=== PATIENT | female | born 2005 ===

== ENCOUNTER 2023-01-09 16:16 | Observation (INO) | payer OTHER, SELFPAY ==
[2023-01-09 18:08] VITALS: BMI 22.4
[2023-01-09] MEDS ORDERED: Ondansetron ODT 4 MG TAB PO PRN (18:19)
[2023-01-09] MEDS ORDERED: Dextrose 50% Abboject 50 ML SYRINGE SLOW IVP PRN (18:19)
[2023-01-09] MEDS ORDERED: Dextrose 5% in Water 1,000 ML IV PRN (18:19)
[2023-01-09] MEDS ORDERED: TETANUS, DIPHTHERIA TOX,ADULT (TDVAX) 0.5 ML VIAL IM ONE (18:19)
[2023-01-09] MEDS ORDERED: Glucagon 1 MG/ML KIT IM PRN (18:19)
[2023-01-09] MEDS ORDERED: Ondansetron PF 4 MG/2 ML Vial IVP PRN (18:19)
[2023-01-09] MEDS ORDERED: Promethazine HCl 25 MG/ML VIAL IM PRN (18:19)
[2023-01-09] MEDS ORDERED: traMADol HCl 50 MG TAB PO PRN (18:19)
[2023-01-09] MEDS ORDERED: Labetalol HCl 100 MG/20 ML VIAL SLOW IVP PRN (18:22)
[2023-01-09] MEDS: Acetaminophen 325 MG TAB PO SCH ×2 (18:32→19:59)
[2023-01-09 20:07] LABS: #Eosinphils 0.1 thou/uL (0.0-0.7); #Monocytes 0.8 thou/uL (0.11-0.59); #Neutrophils 7.1 thou/uL (1.40-6.50); %Basophils 0.4 % (0.0-1.0); %Eosinophils 1.2 % (0.0-10.0); %Lymphocytes 24.5 % (28.0-48.0); %Monocytes 7.5 % (0.0-4.0); %Neutrophils 66.2 % (31.0-61.0); Hematocrit 41.3 % (36.0-47.0); Hemoglobin 13.6 g/dL (12.0-16.0); Mean Corpuscular HGB CONC 32.9 g/dL (32.0-36.0); Mean Corpuscular Hemoglobin 29.6 pg (25.0-35.0); Mean Platelet Volume 11.3 fL (7.4-10.4); Platelet Count 172 10x3/uL (130-400); RBC Distribution Width 12.4 % (11.5-14.5); Red Blood Cell (RBC) Count 4.59 mill/uL (4.00-5.20); White Blood Cell (WBC) Count 10.8 10x3/uL (4.8-10.8)
[2023-01-09 20:30] LABS: PTT 29.3 sec (22.9-36.1); Prothrombin Time 13.8 sec (12.0-14.7)
[2023-01-09 20:34] LABS: Anion Gap 13 mmol/L (10-20); BUN (Urea Nitrogen) 12 mg/dL (8.4-21.0); Calc. Creatinine Clearance 108 mL/min (70-130); Calcium 9.5 mg/dL (7.8-10.44); Carbon Dioxide 25 mmol/L (22-29); Chloride 105 mmol/L (98-107); Estimated GFR 116; Glucose 82 mg/dL (70-105); Magnesium 1.9 mg/dL (1.7-2.2); Phosphorus 3.6 mg/dL (2.3-4.7); Potassium 3.6 mmol/L (3.5-5.1); Sodium 139 mmol/L (136-145)
[2023-01-10] MEDS: Acetaminophen 325 MG TAB PO SCH ×3 (01:30→11:57)
[2023-01-10] MEDS ORDERED: Levothyroxine Sodium 75 MCG TAB PO SCH (06:00)
[2023-01-10 10:50] LABS: Specific Gravity 1.031 (1.002-1.036)
[2023-01-10 11:15] LABS: Pregnancy Test - Urine (BHCG) Negative (Negative); Pregu Control Background? CLEAR/WHITE (CLR/WHITE); Pregu Control Bar Appear? YES (CONTROL BAR)
[2023-01-10 15:36] VITALS: BP 128/63; TEMP 98.2
== END 2023-01-10 16:45 | disposition home or self-care (01) ==
LOC: 2SE 16:16
PROVIDERS: ADMIT Surgery; ATTEND Surgery
DX: I61.8 Other nontraumatic intracerebral hemorrhage (principal); G93.5 Compression of brain; E03.9 Hypothyroidism, unspecified; F90.9 Attention-deficit hyperactivity disorder, unspecified type; Z79.890 Hormone replacement therapy; Z79.899 Other long term (current) drug therapy
CPT/HCPCS: 36415; 70450; 80048; 81025; 83735; 84100; 85025; 85610; 85730; G0378